=== PATIENT | male | born 1980 | race Caucasian/White ===

== ENCOUNTER → 2021-08-16 10:48 | Outpatient (CLI) | payer OTHER, SELFPAY | PROVIDERS: Visit Provider Nurse Practitioner | DX: Z20.822 Contact with and (suspected) exposure to COVID-19 (principal); U07.1 COVID-19 | CPT/HCPCS: C9803; U0003; U0005 ==

== ENCOUNTER → 2021-08-20 10:18 | Outpatient (CLI) | payer OTHER, SELFPAY | PROVIDERS: PCP Family Medicine; Visit Provider Nurse Practitioner | DX: Z20.822 Contact with and (suspected) exposure to COVID-19 (principal); U07.1 COVID-19 | CPT/HCPCS: C9803; U0003; U0005 ==

== ENCOUNTER 2021-12-25 19:56 | Emergency (ER) | payer OTHER, SELFPAY ==
[2021-12-25 20:11] VITALS: BP 182/107; PULSE 97; RESP 16; TEMP 36.6; O2SAT 96; BMI 35.5
--- NOTE | 2021-12-25 20:51 | HMH.EDUTC ---
[facility] Disposition Clinical Impression: Sinusitis Qualifiers: Sinusitis location: unspecified location Chronicity: acute Recurrence: non-recurrent Qualified Code(s): J01.90 - Acute sinusitis, unspecified Disposition: Home, Self-Care Condition on Discharge: Good Instructions: Sinusitis, DI for Sinusitis Additional Instructions: Drink plenty of fluids. Take tylenol or ibuprofen for pain or fever. Take the medications as directed. Follow up with your regular doctor. GO TO THE ER FOR ANY WORSENING SYMPTOMS Don't start the oral steroids until tomorrow, since you had the shot here today. The cough medication (promethazine dm) will make you drowsy, so don't drive or operate heavy machinery after taking it. Prescriptions: Promethazine/Dextromethorphan [Promethazine-Dm Syrup] 5 ml PO Q6HP PRN #240 ml PRN Reason: Cough Transmission Status: Received by [id number] methylPREDNISolone [Medrol] 4 mg PO DIRECTED 6 Days #21 packet Transmission Status: Received by [id number] Azithromycin [Z-Bruce 250mg Tab*] 250 mg PO UD DOSE PK #6 tab Transmission Status: Received by [id number] Referrals: Kike Bradley [Primary Care Provider] - Time of Disposition: 21:23 Medical Decision Making - Medical Records Medical records reviewed: No: I reviewed the patient's medical records. - Samm Inquiry Pt receiving controlled substance: No Vital Signs: 12/25/21 20:11 12/25/21 20:59 Temperature 97.8 F 97.8 F Temperature Source Temporal Artery Scan Pulse Rate 97 H Pulse Rate [Left] 97 H Respiratory Rate 16 16 Blood Pressure 182/107 H Blood Pressure [Right Arm] 182/107 H Blood Pressure Mean [Right Arm] 132 02 Sat by Pulse Oximetry 96 Orders (Tests/Meds): ED MEDICATIONS Discontinued Medications Generic Name Dose Route Start Last Admin Trade Name Freq PRN Reason Stop Dose Admin Methylprednisolone Sodium Succinate 125 mg 12/25/21 20:51 12/25/21 20:54 Methylprednisolone Sod Succ 125mg Vial IM 12/25/21 20:52 125 mg ONCE ONE Administration [facility] HPI - General Stated complaint: sinus drainage Time Seen by Provider: 12/25/21 20:53 Mode of Arrival: Ambulatory Source of Information: Patient Limitations: No Limitations Description of Symptoms (Recalled from Triage Doc. by RN): pt c/o excessive nasal drainage x2 days. HEENT Symptoms (Recalled from RN notes): Yes Resp Symptoms (Recalled from RN notes): No Skin Symptoms (Recalled from RN notes): No MS Symptoms (Recalled from RN notes): No Functional Status (Recalled from RN notes): wnl - History of Present Illness Provider Complaint: He states that for the past 2 days he has been having sinus drainage and sinus congestion. He states that his nose have been draining a lot of clear drainage. He denies any fever or chills. He took a home covid19 test yesterday and it was negative. - Related Data Previous Rx's Medication Instructions Recorded Azithromycin [Z-Bruce 250mg Tab*] 250 mg PO UD DOSE PK #6 tab 12/25/21 Promethazine/Dextromethorphan 5 ml PO Q6HP PRN #240 ml 12/25/21 [Promethazine-Dm Syrup] methylPREDNISolone [Medrol] 4 mg PO DIRECTED 6 Days #21 12/25/21 packet Allergies Allergy/AdvReac Type Severity Reaction Status Date / Time PCN (PENICILLIN) Allergy Unknown Uncoded 10/01/18 18:00 - Worker's Comp Is this a Worker's Comp case?: No [facility] History - Hepatitis A Screen Drug use history?: No High risk sexual behaviors?: No History of sexually transmitted infection?: No Currently employed?: No Childcare worker?: No Do you have indoor plumbing?: Yes Do you have electricity?: Yes Attestation statement:: This patient has been screened for Hepatitis A risk factors. I have reviewed the patient's past medical history: Yes - Social History Smoking Status: Current every day smoker # Packs/Day (cigarettes): 1 Alcohol Intake: never Family Hx:: Cancer, Diabetes, Heart Attack, Hypertensio
[2021-12-25 20:59] VITALS: BP 182/107; PULSE 97; RESP 16; TEMP 36.6
== END 2021-12-25 21:28 | disposition home or self-care (01) ==
LOC: UTC 20:03
PROVIDERS: Emergency Provider Nurse Practitioner Family; PCP Pediatrics
DX: J01.90 Acute sinusitis, unspecified (principal); F17.210 Nicotine dependence, cigarettes, uncomplicated
CPT/HCPCS: 96372; 99202; G0463

== ENCOUNTER 2023-11-26 17:21 | Emergency (ER) | payer OTHER, SELFPAY ==
[2023-11-26 17:23] VITALS: BP 183/119; PULSE 101; RESP 16; TEMP 36.6; O2SAT 100; BMI 36.9
[2023-11-26 17:40] VITALS: BP 161/100; PULSE 104; RESP 18; O2SAT 98
[2023-11-26 18:00] VITALS: BP 147/99; PULSE 104; RESP 18; O2SAT 98
--- NOTE | 2023-11-26 18:33 | PC.NURSE ---
DR VICTORIA AT BEDSIDE
--- NOTE | 2023-11-26 18:34 | ECG_ITS ---
APPROVED REPORT Exam: Resting ECG HR:93 bpm ECG Measurements Heart Rate 93 AXES GA 164 P 44 QRSd 87 QRS 2 QT 333 T 25 QTc 384 Conclusion SINUS RHYTHM NONSPECIFIC T-WAVE ABNORMALITY BORDERLINE ECG UNCONFIRMED REPORT Electronically signed by : Rufus eBach MD 11/28/2023 16:43:22
--- NOTE | 2023-11-26 18:36 | ED_ITS ---
Discharge Plan Disposition Chief Complaint: Recheck/Abnormal Lab/Rx Prescriptions Prescriptions: No Action promethazine-DM 120 ML syrup 5 ml PO Q6HP PRN (Reason: Cough) Qty: 240 0RF azithromycin 250 MG tablet 250 mg PO UD DOSE PK Qty: 6 0RF Rx Instructions: Take two (2) tablets today, then one (1) tablet days #2 thru #5 methylprednisolone 4 MG tablets,dose pack 4 mg PO DIRECTED 6 Days Qty: 21 0RF Referrals Follow up/Referrals: Ivan Bradley MD [Primary Care Provider] - See instructions Clinical Impressions Clinical Impression: Light headed, Asymptomatic hypertension Discharge ED Provider: Hans Leahy General Adult HPI General Chief complaint: Recheck/Abnormal Lab/Rx Stated complaint: high bp, dizziness Time Seen by Provider: 11/26/23 18:19 Mode of Arrival: Wheelchair Source of Information: Patient Limitations: No Limitations Description of Symptoms (Recalled from ER Triage Doc. by RN): Reports that his blood pressure has been elevated. States approx 1 year ago they cut his blood pressure medication in half. Complains of dizziness. History of Present Illness HPI narrative: DescribePatient is a 43-year-old gentleman presenting today with lightheadedness. This is dizziness. No rotary sensation associated with this and states it is more of a lightheaded symptom and it has been going on for the last several days. Has been taking his blood pressure at home and has been up to 160/100 he is on amlodipine 10 mg daily. He has been followed by his primary care doctor for this. Denies any headache neurologic difficulties including numbness weakness tingling in his arms or legs changes in vision or coordination denies any chest pain or shortness of breath denies any changes in urine output. States occasionally he will have some inner ear abnormalities causing vertigo but he is having no vertiginous symptoms at the moment. Of note has been trying to lose weight has been exercising he has been try to have lifestyle modifications associated with his hypertension. Related Data Previous Rx's Medication Instructions Recorded azithromycin 250 mg tablet 250 mg PO UD DOSE PK #6 tabs 12/25/21 methylprednisolone 4 mg tablets in 4 mg PO DIRECTED 6 days #21 12/25/21 a dose pack packets promethazine-DM 6.25 mg-15 mg/5 mL 5 ml PO Q6HP PRN Cough #240 mL 12/25/21 oral syrup Allergies Allergy/AdvReac Type Severity Reaction Status Date / Time PCN (PENICILLIN) Allergy Unknown Uncoded 10/01/18 18:00 [facility] Disclaimer: The information contained in this section may have been updated after the pat ient was seen, as this information can be updated by other users. Social History Smoking Status: Former smoker alcohol intake: never current occupational status: other Travel in the last 8 weeks: None ROS Obtained: Yes All systems reviewed & no additional complaints except as documented Physical Exam General General appearance: alert Respiratory Respiratory exam: Present normal lung sounds bilaterally; Absent respiratory distress Cardiovascular Cardiovascular exam: Present regular rate; Absent tachycardia Abdominal Exam Abdominal exam: Present soft, distention and tenderness Neurological Exam Neurological exam: Present alert, oriented X3, CN II-XII intact and normal gait; Absent motor sensory deficit Medical Decision Making Samm Inquiry Pt receiving controlled substance: No Samm was queried for this patient: No Vital Signs: 11/26/23 17:23 11/26/23 17:40 11/26/23 18:00 Temperature 97.8 F Temperature Source Oral Pulse Rate 104 H 104 H Pulse Rate [Radial] 101 H Respiratory Rate 16 18 18 Blood Pressure 161/100 H 147/99 H Blood Pressure [Right Arm] 183/119 H Blood Pressure Mean 120 110 Blood Pressure Mean [Right Arm] 140 Blood Pressure Source [Right Arm] Automatic Cuff Blood Pressure Position [Right Arm] Sitting 02 Sat by Pulse Oximetry 100 98 98 Oxygen Delivery Method Room Air Lab Data Lab results reviewed: Yes I reviewed the patient's lab results. Lab Results 11/26/23 18:45: WBC 9.3, RBC 5.06, Hgb 16.4, Hct 47.5, MCV 93.8, MCH 32.4 H, MCHC 34.6, RDW 12.8, Plt Count 239, MPV 8.3, Neut % (Auto) 64.0, Lymph % (Auto) 28.2, [place] % (Auto) 6.2, Eos % (Auto) 0.8, Baso % (Auto) 0.9, Neut # (Auto) 6.0, Lymph # (Auto) 2.6, [place] # (Auto) 0.6, Eos # (Auto) 0.1, Baso # (Auto) 0.1, Sodium 139, Potassium 3.8, Chloride 104, Carbon Dioxide 25, Anion Gap 13.8, BUN 11, Creatinine 0.80, Estimated Creat Clear 205, Estimated GFR 106, Est GFR ( Amer) 128, Glucose 144 H, Calcium 9.8, Total Bilirubin 0.4, AST 38, ALT 45, Alkaline Phosphatase 57, Troponin I < 0.01, NT-Pro-B Natriuret Pep 42.8, Total Protein 7.9, Albumin 4.6, Globulin 3.3 H, Albumin/Globulin Ratio 1.4, TSH 1.69 11/26/23 18:45 11/26/23 18:45 Orders (Tests/Meds): ED MEDICATIONS Discontinued Medications Generic Name Dose Route Start Last Admin Trade Name Freq PRN Reason Stop Dose Admin Lactated Ringer's 1,000 mls @ 999 mls/hr 11/26/23 18:45 11/26/23 18:48 Lactated Ringer's 1000 Ml Bag IV 11/26/23 19:45 999 mls/hr .Q1H1M RICHAR Administration ORDERS Category Date Time Status BNP [Brain Natriuretic Peptide] Stat Lab 11/26/23 18:45 Completed CBC w/Auto Diff [Complete Blood Count Auto Diff] Stat Lab 11/26/23 18:45 Completed CMP [Comprehensive Metabolic Panel] Stat Lab 11/26/23 18:45 Completed TSH [Thyroid Stimulating Hormone] Stat Lab 11/26/23 18:45 Completed Trop I [Troponin I] Stat Lab 11/26/23 18:45 Completed Troponin I Q3H Lab 11/26/23 21:45 Ordered Troponin I Q3H Lab 11/27/23 00:45 Ordered Medical Decision Narrative: Patient is a 43-year-old male presents today with hypertension that is asymptomatic he has no clinical signs or symptoms of endorgan damage. Specifically his neurologic exam is completely normal. However given his lightheadedness though workup is different. I had an extensive discussion with him regarding lifestyle modification regarding his hypertension. Will get basic blood work including thyroid function troponin BNP electrolytes etc. make sure no other cause of his lightheadedness is present today. His ENT exam also was normal no evidence of any inner ear infection. He is not having vertiginous symptoms as well. IV fluids will be administered as dehydration certainly could be the cause of this as well. I will reassess after his workup is complete. Reassessment patient is stable and feeling somewhat better. EKG performed which I first interpreted shows a ventricular rate of 93 sinus rhythm no acute ischemic changes noted no significant axis deviation or conduction abnormality this is nondiagnostic from emergency standpoint. No evidence of any endorgan damage from a clinical standpoint is been advised to follow-up with his primary care doctor to discuss further titration of his antihypertensive medications and lifestyle modifications. Critical Care Critical Care Time Critical Care Time: No
[2023-11-26] MEDS: LACTATED RINGERS 1000ML 1,000 ML 999 ML IV (18:48)
[2023-11-26 19:05] LABS: Chloride 104 mmol/L (98-107); Potassium 3.8 mmoL/L (3.5-5.1); Sodium 139 mmol/L (136-145)
[2023-11-26 19:07] LABS: Blood Urea Nitrogen 11 mg/dl (9-20); Creatinine Clearance Estimated 205 mL/min (50-200); Estimated Glomerular Filt Rate 106 ml/min (>60); GFR (African American) 128 ML/MIN (>60)
[2023-11-26 19:08] LABS: Alanine Aminotransferase 45 U/L (12-78); Albumin Level 4.6 g/dl (3.5-5.0); Albumin/Globulin Ratio 1.4 (1.1-1.8); Alkaline Phosphatase 57 U/L (38-126); Anion Gap 13.8 mEq/L (5-15); Aspartate Amino Transferase 38 U/L (17-59); Bilirubin,Total 0.4 mg/dl (0.2-1.3); Calcium 9.8 mg/dl (8.4-10.2); Carbon Dioxide 25 mmol/L (22.0-30.0); Globulin 3.3 g/dL (1.3-3.2); Glucose 144 mg/dl (74-100); Total Protein,Serum 7.9 g/dl (6.3-8.2)
[2023-11-26 19:18] LABS: Basophils # 0.1 K/mm3 (0-0.2); Basophils % 0.9 % (0.1-2.0); Eosinophils # 0.1 K/mm3 (0.0-0.4); Eosinophils % 0.8 % (0.1-12.0); Hematocrit 47.5 % (42.0-52.0); Hemoglobin 16.4 g/dL (14.1-18.0); Lymphocytes # 2.6 K/mm3 (0.7-4.5); Lymphocytes % 28.2 % (10-50); Mean Corpuscular HGB Conc 34.6 g/dL (31.8-35.4); Mean Corpuscular Hemoglobin 32.4 pg (27.0-31.2); Mean Corpuscular Volume 93.8 fl (80-94); Mean Platelet Volume 8.3 fl (7.4-10.4); Monocytes # 0.6 K/mm3 (0.1-1.0); Monocytes % 6.2 % (1.7-9.3); NT Pro Brain Natriuretic Pep. 42.8 pg/mL (0-125); Platelet Count 239 K/mm3 (142-424); Red Blood Count 5.06 M/mm3 (4.60-6.20); Red Cell Distribution Width 12.8 % (11.5-17.5); White Blood Count 9.3 K/mm3 (4.8-10.8)
[2023-11-26 19:39] LABS: Thyroid Stimulating Hormone 1.69 uIU/mL (0.465-4.68)
[2023-11-26 19:46] LABS: Troponin I < 0.01 ng/ml (0.00-0.034)
[2023-11-26 19:55] VITALS: BP 141/86; PULSE 82; RESP 18; TEMP 36.7
== END 2023-11-26 20:00 | disposition home or self-care (01) ==
PROVIDERS: Emergency Provider Student in an Organized Health Care Education/Training Program; PCP Family Medicine
DX: R42 Dizziness and giddiness (principal); I10 Essential (primary) hypertension; Z87.891 Personal history of nicotine dependence
CPT/HCPCS: 80053; 83880; 84443; 84484; 85025; 93005; 96360; 99285